=== PATIENT | female | born 1955 | race Caucasian/White ===

== ENCOUNTER 2017-05-18 22:23 | Emergency (ER) | payer BC ==
[~2017-05-18 22:23] MED LIST: ATIVAN0.5 MG PO; AUGMENTIN 875 M1 TAB PO; BENICAR40 MG PO; CLOPIDOGREL; CORTISPORIN EAR10 M1 OT; GLUCOPHAGE1000 MG PO; HCTZ 25MG25 MG PO; LANTUS100 U/ML SQ; LIPITOR 10MG10 MG PO; LOPRESSOR 225 MG/TAB PO; LORTAB 5/500 501 TAB PO; NORVASC 10MG10 MG PO; PERCOCET 325 MG1 TA2 PO; PREVACID 15MG15 M1 PO; ULTRAM 50MG TAB50 MG PO
[2017-05-18 22:24] VITALS: BP 146/77; TEMP 97.9
[2017-05-18] MEDS ORDERED: TRESIBA FL200 UNIT/1 SQ (22:54)
[2017-05-18] MEDS ORDERED: LOPRESSOR 550 MG/TAB PO (22:54)
[2017-05-18 23:51] VITALS: PULSE 92
== END 2017-05-18 23:51 | disposition home or self-care (01) ==
LOC: COL.ER 22:23
DX: T17.220A Food in pharynx causing asphyxiation, initial encounter (principal); I10 Essential (primary) hypertension; Z79.4 Long term (current) use of insulin

== ENCOUNTER 2017-10-21 11:20 | Inpatient (IN) | payer BC ==
[~2017-10-21] VITALS: Ht 157.5 cm; Wt 126.3 kg
[~2017-10-21 11:20] MED LIST changes: +HCTZ 25MG TAB25 MG PO; -HCTZ 25MG25 MG PO; +LOPRESSOR 550 MG/TAB PO; +TRESIBA FL200 UNIT/1 SQ
[2017-10-21 11:49] VITALS: BP 119/71; PULSE 78; TEMP 98
[2017-10-21] MEDS ORDERED: ASPIRIN 81M81 MG/TA2 PO (12:43)
[2017-10-21] MEDS ORDERED: COZAAR100 MG PO (12:46)
[2017-10-21] MEDS ORDERED: MAG-OX 400400 MG/TAB PO (12:47)
[2017-10-21] MEDS ORDERED: PRILOSEC 20MG20 MG PO (12:49)
[2017-10-21] MEDS ORDERED: BACTRIM DS 8001 TAB PO (12:50)
[2017-10-21] MEDS ORDERED: NOVOLOG FLEX100 U/ML SQ (12:57)
[2017-10-21 13:00] LABS: HEMOGLOBIN 13.4 g/dl (12.5-16.0); MEAN CELL VOLUME 84 fl (80.0-100.0); MEAN CORPUSCULAR HEMOGLOBIN 28 pg (27.0-31.0); MEAN CORPUSCULAR HGB CONC 33 g/dl (33.0-37.0); PLATELET COUNT 178 K/mm3 (130-400); RED BLOOD COUNT 4.87 M/mm3 (4.10-5.30); REDCELL DISTRIBUTION WIDTH-CV 14.2 % (11.5-14.5)
[2017-10-21 13:28] LABS: BAND 26 % (0-10); LYMPHOCYTE 4 % (20.0-51.0); METAMYELOCYTE 4 % (0-0); MYELOCYTE 1 % (0-0); NEUTROPHILS 60 % (42.0-75.2)
[2017-10-21 13:29] LABS: PLATELET ESTIMATE NORMAL (NORMAL)
[2017-10-21 13:45] LABS: ALBUMIN 3.2 gm/dL (3.5-5.0); BILIRUBIN,TOTAL 0.6 mg/dL (0.0-1.0); CALCIUM 8.4 mg/dL (8.4-10.2); CREATININE, serum 1.92 mg/dL (0.52-1.25); POTASSIUM 3.9 mmol/L (3.4-5.0); TOTAL PROTEIN 6.3 gm/dL (6.4-8.2)
[2017-10-21 16:28] VITALS: BP 100/49; PULSE 80; TEMP 98.6
[2017-10-21 20:00] VITALS: BP 126/55; PULSE 85; TEMP 98.2
[2017-10-21 21:39] LABS: CALCIUM 7.4 mg/dL (8.4-10.2); CREATININE, serum 2.11 mg/dL (0.52-1.25); POTASSIUM 3.2 mmol/L (3.4-5.0)
[2017-10-22 01:00] VITALS: BP 152/59; PULSE 89; TEMP 100.1
[2017-10-22 05:21] VITALS: BP 149/67; PULSE 83; TEMP 98.8
[2017-10-22 07:08] LABS: HEMOGLOBIN 11.7 g/dl (12.5-16.0); MEAN CELL VOLUME 84 fl (80.0-100.0); MEAN CORPUSCULAR HEMOGLOBIN 27 pg (27.0-31.0); MEAN CORPUSCULAR HGB CONC 32 g/dl (33.0-37.0); MEAN PLATELET VOLUME 10.4 fl (7.4-10.4); PLATELET COUNT 168 K/mm3 (130-400); RED BLOOD COUNT 4.28 M/mm3 (4.10-5.30); REDCELL DISTRIBUTION WIDTH-CV 14.4 % (11.5-14.5)
[2017-10-22 07:21] LABS: ALBUMIN 2.8 gm/dL (3.5-5.0); BILIRUBIN,TOTAL 0.3 mg/dL (0.0-1.0); CALCIUM 7.8 mg/dL (8.4-10.2); CREATININE, serum 2.16 mg/dL (0.52-1.25); POTASSIUM 3.1 mmol/L (3.4-5.0); TOTAL PROTEIN 5.6 gm/dL (6.4-8.2)
[2017-10-22 07:24] LABS: HEMATOCRIT 36.1 % (37.0-47.0)
[2017-10-22 07:48] VITALS: BP 135/63; PULSE 80; TEMP 98.7
[2017-10-22 09:16] LABS: BAND 21 % (0-10); LYMPHOCYTE 3 % (20.0-51.0); NEUTROPHILS 73 % (42.0-75.2); PLATELET ESTIMATE NORMAL (NORMAL)
[2017-10-22 12:02] VITALS: BP 133/71; PULSE 82; TEMP 98.4
[2017-10-22 16:34] VITALS: BP 146/67; PULSE 87; TEMP 98.5
[2017-10-22 20:00] VITALS: BP 147/70; PULSE 82; TEMP 98.1
[2017-10-23 00:37] VITALS: BP 142/57; PULSE 85; TEMP 98.7
[2017-10-23 04:00] VITALS: BP 142/74; PULSE 72; TEMP 98.6
[2017-10-23 07:01] LABS: HEMOGLOBIN 11.4 g/dl (12.5-16.0); MEAN CELL VOLUME 85 fl (80.0-100.0); MEAN CORPUSCULAR HEMOGLOBIN 27 pg (27.0-31.0); MEAN CORPUSCULAR HGB CONC 32 g/dl (33.0-37.0); PLATELET COUNT 171 K/mm3 (130-400); REDCELL DISTRIBUTION WIDTH-CV 14.6 % (11.5-14.5)
[2017-10-23 07:11] LABS: HEMATOCRIT 35.7 % (37.0-47.0)
[2017-10-23 07:13] LABS: CALCIUM 7.7 mg/dL (8.4-10.2); CREATININE, serum 1.5 mg/dL (0.52-1.25); POTASSIUM 3.4 mmol/L (3.4-5.0)
[2017-10-23 08:35] VITALS: BP 152/73; PULSE 86; TEMP 98.5
[2017-10-23 09:14] LABS: BAND 23 % (0-10); EOSINOPHIL 1 % (0-4); LYMPHOCYTE 6 % (20.0-51.0); NEUTROPHILS 68 % (42.0-75.2); PLATELET ESTIMATE NORMAL (NORMAL)
[2017-10-23 12:20] VITALS: BP 160/69; PULSE 93; TEMP 97.8
[2017-10-23 16:10] VITALS: BP 156/64; PULSE 77; TEMP 98.3
[2017-10-23 19:14] VITALS: BP 153/67; PULSE 86; TEMP 98.2
[2017-10-24 04:02] VITALS: BP 125/53; PULSE 75; TEMP 98.7
[2017-10-24 07:03] VITALS: BP 121/63; PULSE 77; TEMP 97.5
[2017-10-24 07:34] LABS: HEMATOCRIT 36.2 % (37.0-47.0); HEMOGLOBIN 11.4 g/dl (12.5-16.0); MEAN CELL VOLUME 86 fl (80.0-100.0); MEAN CORPUSCULAR HEMOGLOBIN 27 pg (27.0-31.0); MEAN CORPUSCULAR HGB CONC 32 g/dl (33.0-37.0); PLATELET COUNT 200 K/mm3 (130-400); RED BLOOD COUNT 4.19 M/mm3 (4.10-5.30); REDCELL DISTRIBUTION WIDTH-CV 15.1 % (11.5-14.5)
[2017-10-24 07:41] LABS: CREATININE, serum 1.17 mg/dL (0.52-1.25); MAGNESIUM 2.1 mg/dL (1.6-2.3); POTASSIUM 4.1 mmol/L (3.4-5.0)
[2017-10-24 10:45] LABS: BAND 16 % (0-10); LYMPHOCYTE 20 % (20.0-51.0); NEUTROPHILS 52 % (42.0-75.2); PLATELET ESTIMATE NORMAL (NORMAL)
[2017-10-24 10:46] LABS: HYPOCHROMIA 2+
[2017-10-24 10:48] LABS: ANISOCYTOSIS 1+; BURR CELLS 1+
[2017-10-24 11:08] VITALS: BP 162/79; PULSE 84; TEMP 98.3
[2017-10-24 15:33] VITALS: BP 146/75; PULSE 84; TEMP 98.5
[2017-10-24 20:00] VITALS: BP 152/72; PULSE 85; TEMP 98
[2017-10-25 04:57] VITALS: BP 163/64; PULSE 88; TEMP 97.4
[2017-10-25 06:45] LABS: BASO % 0.5 % (0.0-2.0); EOS # 0.2 (0.0-0.7); EOS % 2.3 % (0-4.0); GRAN # 5.2 (1.4-6.5); GRAN % 62.1 % (42.2-75.2); HEMATOCRIT 33.7 % (37.0-47.0); HEMOGLOBIN 10.7 g/dl (12.5-16.0); LYMPH # 1.7 (1.2-3.4); LYMPH % 19.9 % (20.0-51.0); MEAN CELL VOLUME 86 fl (80.0-100.0); MEAN CORPUSCULAR HEMOGLOBIN 27 pg (27.0-31.0); MEAN CORPUSCULAR HGB CONC 32 g/dl (33.0-37.0); MEAN PLATELET VOLUME 9.9 fl (7.4-10.4); MONO # 0.7 (0.1-0.6); MONO % 8.1 % (1.7-9.3); PLATELET COUNT 207 K/mm3 (130-400); REDCELL DISTRIBUTION WIDTH-CV 14.8 % (11.5-14.5)
[2017-10-25 06:59] LABS: CALCIUM 7.6 mg/dL (8.4-10.2); CREATININE, serum 0.91 mg/dL (0.52-1.25); POTASSIUM 3.5 mmol/L (3.4-5.0)
[2017-10-25 07:16] VITALS: BP 158/74; PULSE 77; TEMP 98.9
[2017-10-25 07:44] LABS: BAND 8 % (0-10); BASOPHIL 1 % (0-2); EOSINOPHIL 2 % (0-4); LYMPHOCYTE 25 % (20.0-51.0); METAMYELOCYTE 3 % (0-0); NEUTROPHILS 57 % (42.0-75.2)
[2017-10-25 07:45] LABS: HYPOCHROMIA 1+; PLATELET ESTIMATE NORMAL (NORMAL)
[2017-10-25 07:48] LABS: OVALOCYTES 1+
[2017-10-25] MEDS ORDERED: VANCOMYCIN 11 G/VIA1 IV ×2 (09:36→09:38)
[2017-10-25] MEDS ORDERED: NS INT FLUSH 1010 ML IV (09:36)
[2017-10-25] MEDS ORDERED: NORCO 325 MG-51 TAB PO (09:36)
[2017-10-25 12:04] VITALS: BP 143/90; PULSE 70; TEMP 98
== END 2017-10-25 18:03 | disposition home or self-care (01) | DRG 872 ==
LOC: MEDICAL 11:20
PROVIDERS: Internal Medicine; Nurse Practitioner Family
PROC: 02HV33Z Insertion of Infusion Device into Superior Vena Cava, Percutaneous Approach (ICD-10-PCS; principal; 2017-10-21)
DX: A41.9 Sepsis, unspecified organism (principal); L03.116 Cellulitis of left lower limb; E87.1 Hypo-osmolality and hyponatremia; Z68.42 Body mass index [BMI] 45.0-49.9, adult; N17.9 Acute kidney failure, unspecified; E11.65 Type 2 diabetes mellitus with hyperglycemia; R65.20 Severe sepsis without septic shock; E66.01 Morbid (severe) obesity due to excess calories; I12.9 Hypertensive chronic kidney disease with stage 1 through stage 4 chronic kidney disease, or unspecified chronic kidney disease; E11.22 Type 2 diabetes mellitus with diabetic chronic kidney disease; N18.9 Chronic kidney disease, unspecified; I25.10 Atherosclerotic heart disease of native coronary artery without angina pectoris; Z79.4 Long term (current) use of insulin; E87.6 Hypokalemia; E83.42 Hypomagnesemia
CPT/HCPCS: 99232-AI; 99238; C1751; J1170; J1644; J1815; J2405; J2543; J3370; J3475; J7030; J7040; J7050

== ENCOUNTER 2017-10-29 17:48 | Outpatient (RCR) | payer BC ==
[2017-10-26 07:00] VITALS: BP 155/79; PULSE 93; TEMP 98.1
[2017-10-26 17:47] VITALS: BP 171/75; PULSE 91; TEMP 97.8
[2017-10-27 08:52] VITALS: BP 141/67; PULSE 78; TEMP 98.1
[2017-10-27 18:01] VITALS: BP 165/65; PULSE 94; TEMP 97.8
[2017-10-28 06:49] VITALS: BP 168/74; PULSE 82; TEMP 99
[2017-10-28 18:13] VITALS: BP 156/72; PULSE 96; TEMP 98.4
[~2017-10-29] VITALS: Ht 157.5 cm; Wt 117.0 kg
[2017-10-29 07:41] VITALS: BP 139/56; PULSE 85; TEMP 99
[~2017-10-29 17:48] MED LIST changes: +ASPIRIN 81M81 MG/TA2 PO; +BACTRIM DS 8001 TAB PO; +COZAAR100 MG PO; +MAG-OX 400400 MG/TAB PO; +NORCO 325 MG-51 TAB PO; +NOVOLOG FLEX100 U/ML SQ; +NS INT FLUSH 1010 ML IV; +PRILOSEC 20MG20 MG PO; +VANCOMYCIN 11 G/VIA1 IV
[2017-10-30 07:15] VITALS: BP 145/65; PULSE 88; TEMP 97
[2017-10-31 06:53] VITALS: BP 156/74; PULSE 75; TEMP 98.4
[2017-10-31 17:58] VITALS: BP 158/82; PULSE 91; TEMP 98.1
[2017-11-01 07:05] VITALS: BP 148/59; PULSE 83; TEMP 98.2
[2017-11-01 18:54] VITALS: BP 178/82; PULSE 95; TEMP 98.1
[2017-11-02 06:52] VITALS: BP 154/75; PULSE 85; TEMP 98.1
[2017-11-02 17:55] VITALS: BP 148/73; PULSE 90; TEMP 98.2
[2017-11-03 08:13] VITALS: BP 152/74; PULSE 81; TEMP 98.6
[2017-11-03 18:03] VITALS: BP 163/70; PULSE 84; TEMP 98
[2017-11-04 06:45] VITALS: BP 144/61; PULSE 83; TEMP 97.7
[2017-11-04 18:47] VITALS: BP 161/71; PULSE 92; TEMP 98.2
[2017-11-10 09:59] VITALS: BP 140/62; PULSE 76; TEMP 98.3
[2017-11-11 12:20] VITALS: BP 152/64; PULSE 87; TEMP 98.3
[2017-11-11 12:33] LABS: BASO # 0.1 (0.0-0.2); BASO % 0.5 % (0.0-2.0); EOS # 0.2 (0.0-0.7); EOS % 1.9 % (0-4.0); GRAN # 6.8 (1.4-6.5); GRAN % 62.9 % (42.2-75.2); HEMOGLOBIN 11.3 g/dl (12.5-16.0); LYMPH % 27.4 % (20.0-51.0); MEAN CELL VOLUME 84 fl (80.0-100.0); MEAN CORPUSCULAR HEMOGLOBIN 27 pg (27.0-31.0); MEAN CORPUSCULAR HGB CONC 32 g/dl (33.0-37.0); MEAN PLATELET VOLUME 8.8 fl (7.4-10.4); MONO # 0.7 (0.1-0.6); MONO % 6.6 % (1.7-9.3); PLATELET COUNT 368 K/mm3 (130-400); RED BLOOD COUNT 4.22 M/mm3 (4.10-5.30); REDCELL DISTRIBUTION WIDTH-CV 14.5 % (11.5-14.5)
[2017-11-11 12:34] LABS: HEMATOCRIT 35.3 % (37.0-47.0)
[2017-11-11 12:55] LABS: ALBUMIN 3.6 gm/dL (3.5-5.0); BILIRUBIN,TOTAL 0.5 mg/dL (0.0-1.0); C-REACTIVE PROTEIN 1.9 mg/dL (0.0-0.9); CALCIUM 8.6 mg/dL (8.4-10.2); CREATININE, serum 0.86 mg/dL (0.52-1.25); POTASSIUM 4.6 mmol/L (3.4-5.0); TOTAL PROTEIN 8.3 gm/dL (6.4-8.2)
[2017-11-11 13:13] LABS: ERYTHROCYTE SEDIMENTATION RATE 85 mm/hr (0-30)
== END 2017-11-11 13:11 | disposition home or self-care (01) ==
LOC: EUO 10-30 07:00
PROVIDERS: Internal Medicine Infectious Disease
DX: S81.802A Unspecified open wound, left lower leg, initial encounter (principal); L03.116 Cellulitis of left lower limb; Z45.2 Encounter for adjustment and management of vascular access device; Z95.9 Presence of cardiac and vascular implant and graft, unspecified
CPT/HCPCS: J2997; J3370; J7050

== ENCOUNTER → 2018-01-06 | Outpatient (CLI) | payer BC | LOC: ZCOL.LAB 13:51 | DX: L03.116 Cellulitis of left lower limb (principal) ==

== ENCOUNTER 2023-12-02 07:55 | Day surgery (SDC) | payer MEDICARE ==
[2023-12-02] VITALS (12 sets, daily range): BP systolic 119–152; BP diastolic 54–74; PULSE 62–71; TEMP 97.5–99
[~2023-12-02] VITALS: Ht 157.5 cm; Wt 121.7 kg
[~2023-12-02 07:55] MED LIST changes: +LR 1,000 ML IV SCH
[2023-12-02] MEDS ORDERED: Lidocaine PF 2% (20 MG/ML) 5 ML VIAL ONE ×3 (09:00→09:47)
[2023-12-02] MEDS ORDERED: dexAMETHasone 10 MG/ML VIAL ONE (09:00)
[2023-12-02] MEDS ORDERED: Midazolam 2 MG/2 ML VIAL ONE (09:00)
[2023-12-02] MEDS ORDERED: MASON NATURAL1200 MG PO (09:38)
[2023-12-02] MEDS ORDERED: BENICAR40 MG PO (09:39)
[2023-12-02] MEDS ORDERED: NORVASC 10MG10 MG PO (09:39)
[2023-12-02] MEDS ORDERED: Ondansetron 4 MG/2 ML VIAL ONE (09:47)
[2023-12-02] MEDS ORDERED: ePHEDrine 50 MG/ML VIAL ONE (11:06)
[2023-12-02] MEDS ORDERED: HYDROmorphone 1 MG/1 ML SYRINGE [PACU/SDC ONLY] IV PRN (11:30)
[2023-12-02] MEDS ORDERED: fentaNYL 50 MCG/ML 1 ML SYRINGE/VIAL [PACU/SDC ONLY] IV PRN (11:30)
[2023-12-02] MEDS ORDERED: Ketorolac 15 MG/ML VIAL IV PRN (11:30)
[2023-12-02] MEDS ORDERED: droPERidol 2.5 MG/ML 2 ML VIAL IV PRN (11:30)
[2023-12-02] MEDS ORDERED: Ondansetron 4 MG/2 ML VIAL IV PRN ×2 (11:30→14:15)
[2023-12-02] MEDS ORDERED: hydrALAZINE 20 MG/ML 1 ML VIAL IV PRN (11:30)
[2023-12-02] MEDS ORDERED: Metoprolol Tartrate 50 MG TAB PO SCH (14:00)
--- NOTE | 2023-12-02 14:00 | NUR ---
Pt. to the floor from PACU. Pt. is A&OX3, assessment WNL. Dressing to rt. chest CDI. MICHAEL drain noted with bloody draingage. Pt. denies needs at this time.
[2023-12-02] MEDS ORDERED: Morphine 4 MG/ML VIAL IV PRN (14:15)
[2023-12-02] MEDS ORDERED: Dextrose (Glucose) 15 GM (4 x 3.75 GM) Chewable TABLET PACK PO PRN (14:30)
[2023-12-02] MEDS ORDERED: Dextrose 50% Water 25 GM/50 ML SYRINGE IV PRN (14:30)
[2023-12-02] MEDS ORDERED: Glucagon 1 MG VIAL IM PRN (14:30)
[2023-12-02] MEDS ORDERED: Insulin Lispro (HumaLOG) SQ SCH ×2 (17:00)
[2023-12-02] MEDS ORDERED: Atorvastatin 80 MG TAB PO SCH (21:00)
[2023-12-02] MEDS ORDERED: Insulin Glargine-ygfn (Lantus) SQ SCH (21:00)
[2023-12-03 00:47] VITALS: BP_SYST 119
[2023-12-03 04:00] VITALS: BP 128/69; PULSE 74; TEMP 98.2
[2023-12-03 06:37] LABS: BASO % 0.2 % (0.0-2.0); GRAN # 8.6 K/mm3 (1.4-6.5); GRAN % 78.7 % (42.2-75.2); HEMOGLOBIN 11.2 g/dl (12.5-16.0); LYMPH # 1.8 K/mm3 (1.2-3.4); MEAN CELL VOLUME 82 fl (80.0-100.0); MEAN CORPUSCULAR HEMOGLOBIN 27 pg (27-31); MEAN CORPUSCULAR HGB CONC 33 g/dl (33.0-37.0); MONO # 0.5 K/mm3 (0.1-0.6); MONO % 4.7 % (1.7-9.3); PLATELET COUNT 238 K/mm3 (130-400); REDCELL DISTRIBUTION WIDTH-CV 13.9 % (11.5-14.5)
--- NOTE | 2023-12-03 06:50 | NUR ---
Pt reporting pain 10/28. Discussed pain management plan with Pt. Pt declined to use IV meds. Pt ok with waiting for PO [place]. Applied warm blanket to site. Pt described pain as a tight knot. Pt agreeable with plan.
[2023-12-03] MEDS ORDERED: Omeprazole 20 MG **** subs to Pantoprazole 40 MG PO SCH (07:00)
[2023-12-03 07:05] LABS: HEMATOCRIT 33.6 % (37.0-47.0)
[2023-12-03 07:07] LABS: CALCIUM 8.4 mg/dL (8.4-10.2); CREATININE, serum 1.2 mg/dL (0.57-1.11); MAGNESIUM 1.5 mg/dL (1.6-2.6)
[2023-12-03 07:47] VITALS: BP 121/68; PULSE 66; TEMP 98
[2023-12-03] MEDS ORDERED: Magnesium Sulfate 4% 50 ML IV ONE (08:15)
[2023-12-03 08:45] VITALS: BP_SYST 121
--- NOTE | 2023-12-03 08:45 | NUR ---
Pt sitting up in bed. A&Ox4. VSS. S1S2. Clear lungs on RA. ABD round, soft, non-tender with audible bowel sounds. Palpable pulses and 5/5 strength in all extremities. INT in L forearm patent, no issues. Incision on R breast is WA, no dressing. Dr Pastor removed dressing this AM and stated "leave it up to patient if she wants a dressing." Pt declined dressing at this time. Emptied drains. 50 from Drain 1, 30 from Drain 2. Educated Pt on drains. Pt reported pain 9/10, deep, pulling pain in R chest. Pain meds administered. No further needs. Call light in reach.
[2023-12-03] MEDS ORDERED: NORCO 325 MG-51 TAB PO (08:53)
[2023-12-03] MEDS ORDERED: hydroCHLOROthiazide 25 MG TAB PO SCH (09:00)
[2023-12-03] MEDS ORDERED: Olmesartan 40 MG **** subs to Losartan 100 MG PO SCH (09:00)
[2023-12-03] MEDS ORDERED: Losartan 50 MG TAB PO SCH (09:00)
[2023-12-03] MEDS ORDERED: amLODIPine 10 MG TAB PO SCH (09:00)
--- NOTE | 2023-12-03 10:24 | NUR ---
SW met with patient to complete intake and discuss discharge planning. Patient confirmed that she lives in her home in [place] with spouse (Joseph Benedict [phone]) reports they have a DPOA at their home. Patient shared that her PCP is Dr Pollard and pharmacy of choice is [facility] [place]) Patient reports that she currently does not use any DMEs and that she is independent with ADLs. Patient is anticipating to discharge back to her home, pending any further medical recommendations.
[2023-12-03] MEDS ORDERED: Insulin Lispro (HumaLOG) SQ SCH (12:00)
--- NOTE | 2023-12-03 12:06 | NUR ---
Data: Patient accepted spiritual care visit offered during Animal Cruelty Investigation Supervisor rounds. Patient expects to discharge today. Assessment: Patient is reflective on life and future family plans. Hopeful. Plan of Care: Animal Cruelty Investigation Supervisor provided supportive listening; and prayer.
--- NOTE | 2023-12-03 12:20 | NUR ---
Educated Pt and family on discharge information and education. Provided Pt with supplies for drain. Answered Pt and family questions. Pt transported via WC to car by this RN. No further needs.
== END 2023-12-03 12:26 | disposition home or self-care (01) ==
LOC: SDCO 07:55 → SURG 13:49 → SDCO 12-03 12:26
PROVIDERS: Hospitalist
DX: C50.311 Malignant neoplasm of lower-inner quadrant of right female breast (principal); C77.3 Secondary and unspecified malignant neoplasm of axilla and upper limb lymph nodes; Z17.0 Estrogen receptor positive status [ER+]; I25.10 Atherosclerotic heart disease of native coronary artery without angina pectoris; I10 Essential (primary) hypertension; E78.5 Hyperlipidemia, unspecified; E11.9 Type 2 diabetes mellitus without complications; Z68.42 Body mass index [BMI] 45.0-49.9, adult; E66.01 Morbid (severe) obesity due to excess calories; Z79.4 Long term (current) use of insulin; Z79.899 Other long term (current) drug therapy; Z79.82 Long term (current) use of aspirin
CPT/HCPCS: OP; A4648; J1100; J1815; J2250; J2405; J2704; J2795; J3475; J7120

== ENCOUNTER 2023-12-23 08:31 | Day surgery (SDC) | payer MEDICARE ==
[~2023-12-23] VITALS: Ht 157.5 cm; Wt 119.9 kg
[2023-12-23] VITALS (11 sets, daily range): BP systolic 129–141; BP diastolic 47–75; PULSE 65–93; TEMP 97.2–98.9
[~2023-12-23 08:31] MED LIST changes: +MASON NATURAL1200 MG PO
[2023-12-23] MEDS ORDERED: Morphine 2 MG/1 ML VIAL [PACU/SDC ONLY] IV PRN (08:45)
[2023-12-23] MEDS ORDERED: Ondansetron 4 MG/2 ML VIAL IV PRN ×2 (08:45→15:15)
[2023-12-23] MEDS ORDERED: hydrALAZINE 20 MG/ML 1 ML VIAL IV PRN (08:45)
[2023-12-23] MEDS ORDERED: HYDROmorphone 1 MG/1 ML SYRINGE [PACU/SDC ONLY] IV PRN (08:45)
[2023-12-23] MEDS ORDERED: fentaNYL 50 MCG/ML 1 ML SYRINGE/VIAL [PACU/SDC ONLY] IV PRN (08:45)
[2023-12-23] MEDS ORDERED: dexAMETHasone 10 MG/ML VIAL ONE (09:10)
[2023-12-23] MEDS ORDERED: Ondansetron 4 MG/2 ML VIAL ONE (09:10)
[2023-12-23] MEDS ORDERED: NS 10 ML IV ONE (09:10)
[2023-12-23] MEDS ORDERED: Lidocaine PF 2% (20 MG/ML) 5 ML VIAL ONE (09:10)
[2023-12-23] MEDS ORDERED: fentaNYL 50 MCG/ML 2 ML VIAL ONE ×2 (09:10→11:19)
[2023-12-23] MEDS ORDERED: Midazolam 2 MG/2 ML VIAL ONE (09:11)
[2023-12-23] MEDS ORDERED: ePHEDrine 50 MG/ML VIAL ONE (10:38)
[2023-12-23] MEDS ORDERED: Lidocaine 1% w EPI (1:100,000) 10 ML Multi-Dose VIAL SQ ONE (10:45)
[2023-12-23] MEDS ORDERED: LR 1,000 ML IV ONE (12:06)
[2023-12-23] MEDS ORDERED: Metoprolol Tartrate 50 MG TAB PO SCH (14:00)
--- NOTE | 2023-12-23 14:10 | NUR ---
Pt. arrived to the floor from PACU. Pt. is drowsy but A&OX3. Assessment wnl. Pt. rates pain at a 4 on pain scale at this time. Pt. denies need for pain meds. Dressing to lt. PORT site CDI. Rt. mastectomy dressing CDI. Pt. denies further needs, call light within reach.
[2023-12-23] MEDS ORDERED: Morphine 4 MG/ML VIAL IV PRN (15:15)
[2023-12-23] MEDS ORDERED: Dextrose (Glucose) 15 GM (4 x 3.75 GM) Chewable TABLET PACK PO PRN (16:00)
[2023-12-23] MEDS ORDERED: Glucagon 1 MG VIAL IM PRN (16:00)
[2023-12-23] MEDS ORDERED: Dextrose 50% Water 25 GM/50 ML SYRINGE IV PRN (16:00)
[2023-12-23] MEDS ORDERED: Insulin Lispro (HumaLOG) SQ SCH ×2 (16:00→18:00)
[2023-12-23 16:51] LABS: CALCIUM 9.1 mg/dL (8.4-10.2); CREATININE, serum 0.89 mg/dL (0.57-1.11); MAGNESIUM 1.4 mg/dL (1.6-2.6); POTASSIUM 3.3 mEq/L (3.5-4.5)
[2023-12-23] MEDS ORDERED: Magnesium Sulfate 8% 50 ML IV ONE (17:30)
[2023-12-23] MEDS ORDERED: Potassium Bicarbonate/Citrate 20 MEQ Effervescent TAB PO ONE (17:30)
--- NOTE | 2023-12-23 20:45 | NUR ---
Scheduled meds administered per MAY. Shift assessment complete. BLE are edematous pitting +2. Lung sounds are clear over MCKENZIE upper lobes and diminished at MCKENZIE bases. Bowel sounds are present, but hypoactive. Pt. denies passing flatus since procedure. Incision to Rt. chest is dressed w/ xereform and gauze. Dressings CDI. Lt. chest port site is dressed w/ gauze. Dressing CDI. Rt. sided MICHAEL drain to bulb suction emptied 30 mL bloody drainage. Pt. reports pain is 0/10 w/ 5 being acceptable. No further outstanding findings at this time. Pt. denies needs or requests at this time. Call light in reach.
[2023-12-23] MEDS ORDERED: Insulin Glargine-ygfn (Lantus) SQ SCH (21:00)
[2023-12-23] MEDS ORDERED: Atorvastatin 80 MG TAB PO SCH (21:00)
[2023-12-24] VITALS (7 sets, daily range): BP systolic 117–133; BP diastolic 67–75; PULSE 68–76; TEMP 97.5–97.8
--- NOTE | 2023-12-24 05:50 | NUR ---
Pt's MICHAEL drain has had a moderate amount of bloody drainage through the night. Dressings to Rt. incision and Rt. MICHAEL drain changed once during the night and reinforced once during the night d/t bloody drainage soiling dressings. Blood sugars were high through the night. Scheduled insulin administered per MAY. At this time, pt. is resting in bed w/ eyes closed and respirations even and unlabored. No requests or needs at this time. Call light in reach.
[2023-12-24 06:09] LABS: BASO % 0.2 % (0.0-2.0); GRAN # 10.5 K/mm3 (1.4-6.5); GRAN % 82.2 % (42.2-75.2); LYMPH # 1.6 K/mm3 (1.2-3.4); LYMPH % 12.5 % (20.0-51.0); MEAN CELL VOLUME 81 fl (80.0-100.0); MEAN CORPUSCULAR HGB CONC 34 g/dl (33.0-37.0); MEAN PLATELET VOLUME 9.8 fl (7.4-10.4); MONO # 0.6 K/mm3 (0.1-0.6); MONO % 4.7 % (1.7-9.3); PLATELET COUNT 331 K/mm3 (130-400); RED BLOOD COUNT 3.56 M/mm3 (4.10-5.30); REDCELL DISTRIBUTION WIDTH-CV 13.9 % (11.5-14.5)
[2023-12-24 06:16] LABS: HEMATOCRIT 28.9 % (37.0-47.0); HEMOGLOBIN 9.8 g/dl (12.5-16.0); MEAN CORPUSCULAR HEMOGLOBIN 28 pg (27-31)
[2023-12-24 06:27] LABS: CALCIUM 8.8 mg/dL (8.4-10.2); CREATININE, serum 1.03 mg/dL (0.57-1.11); POTASSIUM 4.2 mEq/L (3.5-4.5)
[2023-12-24] MEDS ORDERED: Omeprazole 20 MG **** subs to Pantoprazole 40 MG PO SCH (07:00)
[2023-12-24] MEDS ORDERED: hydroCHLOROthiazide 25 MG TAB PO SCH (09:00)
[2023-12-24] MEDS ORDERED: Losartan 50 MG TAB PO SCH (09:00)
[2023-12-24] MEDS ORDERED: Olmesartan 40 MG **** subs to Losartan 100 MG PO SCH (09:00)
[2023-12-24] MEDS ORDERED: amLODIPine 10 MG TAB PO SCH (09:00)
--- NOTE | 2023-12-24 09:26 | NUR ---
Patient sitting up in chair. Independent in room. Ready for discharge home today. Right chest dressing CDI. MICHAEL drain to compression. Left chest Port site dressing CDI. INT. She did well with breakfast, denies nausea. denies other needs.
--- NOTE | 2023-12-24 11:32 | NUR ---
rounded, orders obtained
[2023-12-24] MEDS ORDERED: Insulin Lispro (HumaLOG) SQ SCH (12:00)
--- NOTE | 2023-12-24 12:09 | NUR ---
Data: Patient accepted spiritual care visit offered during Fire Alarm Mechanic rounds. Life review. Patient hopes to discharge today. Assessment: Patient has a very positive attitude regarding her healthcare. Patient maintains an appropriate sense of humor about her current situation. Plan of Care: Fire Alarm Mechanic provided supportive listening and prayer. Patient thanked Fire Alarm Mechanic for the visit. Chaplains will remain available as needed/requested while Patient is admitted to this hospital.
--- NOTE | 2023-12-24 13:02 | NUR ---
Patient up in chair, spouse at bedside. Insulin with her lunch. Denies other needs at this time
--- NOTE | 2023-12-24 15:06 | NUR ---
plant worker met with patient at bedside to discuss discharge planning. Patient stated that she lives in [place] with her Joseph (p# [phone]). When asked about a DPOA, patient states that both her and her some Chema are both her DPOAs. Patient states that her PCP is Dr. Pollard and that her pharmacy is [facility]. Patient denied any use of DMEs at home and reports that she is independent in her ADLs and Transportation needs. Patient denies using any Home Health services presently or in the past. Patient denies any concerns regarding her discharge. Plan: D/C home.
--- NOTE | 2023-12-24 15:09 | NUR ---
Patient ready to discharge home. Right chest incisions redressed after rounded. Gauze, drain sponge with tape. Extra supplies sent with patient to send home. Patient knowledablge and able to drain MICHAEL drain herself. Patient sent with paperwork to record drain output. Int DC. Medication list reviewed with last dose taken. She is aware of follow up appt scheduled for next Tuesday. Patient Wheeled out with all belongings, her spouse to take her home.
[2023-12-24] MEDS ORDERED: Insulin Glargine-ygfn (Lantus) SQ SCH (21:00)
== END 2023-12-24 15:13 | disposition home or self-care (01) ==
LOC: SDCO 08:31 → SURG 14:10 → SDCO 12-24 15:13
PROVIDERS: Internal Medicine; Surgery
DX: C50.311 Malignant neoplasm of lower-inner quadrant of right female breast (principal); C77.3 Secondary and unspecified malignant neoplasm of axilla and upper limb lymph nodes; T81.41XA Infection following a procedure, superficial incisional surgical site, initial encounter; I10 Essential (primary) hypertension; K21.9 Gastro-esophageal reflux disease without esophagitis; E66.01 Morbid (severe) obesity due to excess calories; E78.5 Hyperlipidemia, unspecified; I25.10 Atherosclerotic heart disease of native coronary artery without angina pectoris; Z79.82 Long term (current) use of aspirin; Z79.899 Other long term (current) drug therapy; Z45.2 Encounter for adjustment and management of vascular access device
CPT/HCPCS: OP; A4648; C1788; J0665; J0690; J0780; J1100; J1171; J1815; J2250; J2270; J2405; J2704; J2795; J3010; J3475; J7120

== ENCOUNTER → 2023-12-27 | Outpatient (CLI) | payer MEDICARE ==
[~2023-12-27] MED LIST changes: -LR 1,000 ML IV SCH
== END ==
LOC: COL.VAS 12:35
DX: Z01.810 Encounter for preprocedural cardiovascular examination (principal); C50.311 Malignant neoplasm of lower-inner quadrant of right female breast; I34.0 Nonrheumatic mitral (valve) insufficiency